=== PATIENT | female | born 1990 | race Two or more races ===

== ENCOUNTER 2022-06-29 17:51 | Emergency (ER) | payer BC, SELFPAY ==
[2022-06-29 18:05] VITALS: BP 102/54; PULSE 70; RESP 16; TEMP 36.7; O2SAT 99
--- NOTE | 2022-06-29 18:30 | ED.BACK ---
HPI - Back Pain/Injury General Chief Complaint: Back Pain/Injury Stated Complaint: Back Pain Time Seen by Provider: 06/29/22 18:30 Source: patient Mode of arrival: ambulatory Limitations: no limitations History of Present Illness HPI Narrative: 32-year-old female presents with complaint of upper back pain for several Months. states that pain started acting up today while at work. She feels tight across her upper back. Reports that she sees a chiropractor for it. Has an appointment tomorrow. Was told by chiropractor to come to urgent care to get some pain relief . Patient ambulatory with steady gait. No weakness, numbness, radiating pain to upper extremities. Denies injury. Taking ibuprofen to treat pain without relief. All systems reviewed and negative except as noted above. Related Data Allergies Allergy/AdvReac Type Severity Reaction Status Date / Time No Known Allergies Allergy Unverified 06/29/22 18:07 Review of Systems Review of Systems: CONSTITUTIONAL: Denies fever, chills, or sweats. EYES: Denies visual changes, redness, or discharge. ENT: Denies rhinorrhea, congestion, sore throat, or otalgia. CARDIOVASCULAR: Denies chest pain, palpitations, or edema. RESPIRATORY: Denies cough or dyspnea. GASTROINTESTINAL: Denies abdominal pain, nausea, vomiting, or diarrhea. GENITOURINARY: Denies dysuria or hematuria. SKIN: Denies rash or itching. MUSCULOSKELETAL: Reports upper back pain. NEUROLOGIC: Denies headache, numbness, or weakness. PSYCHIATRIC: Denies anxiety or depression. All other systems reviewed are negative, except as documented in HPI. PMFSH Comments At time of signature, agree with nursing past medical, surgical, social and family history. There is no relevant family history pertinent to the presenting complaint. Exam Narrative: GENERAL: This is a well-nourished, well-developed patient, in no apparent distress. HEAD: normocephalic, atraumatic. EYES: PERRL. Sclera clear/white. Vision is grossly intact. EARS: External ears normal NOSE: External nose normal NECK: Neck supple, non-tender without lymphadenopathy, masses or thyromegaly. CARDIOVASCULAR: Regular rate and rhythm without murmurs, gallops, or rubs. RESPIRATORY: Clear to auscultation. Breath sounds equal bilaterally. No wheezes, rales, or rhonchi. SKIN: warm, Dry, intact with no suspicious lesions or rash, good texture and turgor. NEURO: awake, alert, and oriented to person, place and time. 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 EXTREMITIES: No joint tenderness, effusion, or edema noted. BACK: upper back muscular tenderness and spasm. no midline tenderness. Course Course Level of Care: Express Care Visit Vital Signs Vital signs: Vital Signs Temperature 36.7 C 06/29/22 18:05 Pulse Rate 70 06/29/22 18:05 Respiratory Rate 16 06/29/22 18:05 Blood Pressure 102/54 L 06/29/22 18:05 Pulse Oximetry 99 06/29/22 18:05 Temperature 36.7 C 06/29/22 18:05 Pulse Rate 70 06/29/22 18:05 Respiratory Rate 16 06/29/22 18:05 Blood Pressure 102/54 L 06/29/22 18:05 Pulse Oximetry 99 06/29/22 18:05 Reviewed MDM - Back Pain/Injury MDM Narrative Medical decision making narrative: Patient is aware of diagnosis, understands and agrees to treatment plan. Anticipatory guidance given. Patient agrees to follow-up as directed and is aware of reasons to seek care at the emergency department. Portions of this record may have been created with voice recognition software Lab Data Labs: Strep Screen Presumptive Negative *(Reference Range: Negative)* Discharge Plan Discharge Clinical Impression: Muscle strain of upper back Patient Disposition: Home, Self-Care Condition: Stable Instructions: Muscle Strain (ED) Additional Instructions: Take medications as prescribed. Do not drive while taking methocarbamol. This medic
== END 2022-06-29 18:40 | disposition home or self-care (01) ==
PROVIDERS: Emergency Provider Nurse Practitioner Family
DX: S29.012A Strain of muscle and tendon of back wall of thorax, initial encounter (principal); X58.XXXA Exposure to other specified factors, initial encounter
CPT/HCPCS: 87880; 99213; G0463